=== PATIENT | female | born 1995 | race Caucasian/White ===

== ENCOUNTER → 2017-12-04 | Outpatient (CLI) | payer BC ==
--- NOTE | 2017-12-04 14:17 | US ---
EXAMINATION TYPE: US abdomen complete DATE OF EXAM: 12/04/2017 COMPARISON: Renal only CLINICAL HISTORY: R10.33 PERIUMBILICAL PAIN. Pt states periumbilical pain, N&V EXAM MEASUREMENTS: Liver Length: 12.7 cm Gallbladder Wall: 0.2 cm CBD: 0.3 cm Spleen: 8.5 cm Right Kidney: 10.9 x 4.1 x 4.9 cm Left Kidney: 10.0 x 5.1 x 4.3 cm Pancreas: wnl Liver: wnl Gallbladder: wnl Evidence for sonographic Lopez's sign: No CBD: wnl Spleen: wnl Right Kidney: wnl Left Kidney: wnl Upper IVC: wnl Abd Aorta: wnl No abnormality visualized within ABD at this time The liver is homogenous. The intrahepatic portion of the IVC and proximal abdominal aorta are within normal limits. There is no evidence of cholelithiasis. Common bile duct is unremarkable. The visu alized portions of the pancreas are homogenous. The spleen is unremarkable. Kidneys are symmetric a nd free of hydronephrosis. No renal lesions are seen. IMPRESSION: Normal abdomen ultrasound
--- NOTE | 2017-12-04 15:19 | US ---
EXAMINATION TYPE: US pelvic complete DATE OF EXAM: 12/04/2017 COMPARISON: NONE CLINICAL HISTORY: R10.33 PERIUMBILICAL PAIN. Generalized pain. Patient on menses. TECHNIQUE: Transabdominal (TA). Date of LMP: 12/01/2017, G0 EXAM MEASUREMENTS: Uterus: 6.0 x 3.7 x 3.3 cm Endometrial Stripe: 0.2 cm Right Ovary: 2.5 x 1.6 x 1.3 cm Left Ovary: 2.9 x 1.4 x 1.4 cm 1. Uterus: Anteverted wnl 2. Endometrium: wnl 3. Right Ovary: wnl 4. Left Ovary: wnl 5. Bilateral Adnexa: wnl 6. Posterior cul-de-sac: no free fluid Cervix- wnl IMPRESSION: No significant abnormalities evident
== END | disposition home or self-care (01) ==
LOC: RADUSWWP 13:09
PROVIDERS: ATTEND Family Medicine
DX: R10.33 Periumbilical pain (principal)
CPT/HCPCS: 76700; 76856

== ENCOUNTER → 2018-07-17 | Outpatient (CLI) | payer BC ==
--- NOTE | 2018-07-18 07:14 | XR ---
EXAMINATION TYPE: XR chest 2V DATE OF EXAM: 07/17/2018 COMPARISON: NONE HISTORY: Cough for 1.5 months TECHNIQUE: Frontal and lateral views of the chest are obtained. FINDINGS: There is no focal air space opacity, pleural effusion, or pneumothorax seen. The cardiac silhouette size is within normal limits. The osseous structures are intact. IMPRESSION: No acute cardiopulmonary process.
== END | disposition home or self-care (01) ==
LOC: RADXRYALE 16:48
PROVIDERS: ATTEND Physician Assistant Medical
DX: R05 Cough (principal)
CPT/HCPCS: 71046

== ENCOUNTER 2019-11-24 15:35 | Observation (INO) | payer BC ==
[2019-11-24 16:45] LABS: Appearance,Urine Cloudy (Clear); Bilirubin,Urine Negative (Negative); Blood,Urine Moderate (Negative); Color,Urine Yellow; Glucose,Urine (UA) Negative (Negative); Hyaline Casts,Urine 3 /lpf (0-2); Ketones,Urine Negative (Negative); Leukocyte Esterase,Urine Large (Negative); Mucus,Urine Many /hpf; Nitrite,Urine Negative (Negative); Protein,Urine 1+ (Negative); RBC,Urine 24 /hpf (0-5); Specific Gravity,Urine 1.023 (1.001-1.035); Sperm,Urine Rare /hpf; Squamous Epithelial Cell,Urine 16 /hpf (0-4); Urobilinogen,Urine <2.0 mg/dL (<2.0); WBC,Urine >182 /hpf (0-5)
[2019-11-24 16:56] VITALS: RESP 16
[2019-11-24 16:58] LABS: Basophils % (A) 0 %; Eosinophils # (A) 0.1 k/uL (0-0.7); Eosinophils % (A) 1 %; HCT 33.5 % (34.0-46.0); HGB 10.8 gm/dL (11.4-16.0); Lymphocytes # (A) 1.7 k/uL (1.0-4.8); Lymphocytes % (A) 13 %; MCHC 32.1 g/dL (31.0-37.0); MCV 93.4 fL (80.0-100.0); Mean Platelet Volume 7.8; Monocytes # (A) 0.6 k/uL (0-1.0); Monocytes % (A) 5 %; Neutrophils # (A) 10.3 k/uL (1.3-7.7); Neutrophils % (A) 80 %; Platelet Count 197 k/uL (150-450); RBC 3.59 m/uL (3.80-5.40); RDW 13.1 % (11.5-15.5)
[2019-11-24] MEDS: LACTATED RINGERS 1,000 ML IV SCH ×5 (16:59→21:18)
[2019-11-24] MEDS ORDERED: BETAMET ACET-BETAMETH SOD PHOS 6 MG/ML MDV IM SCH (17:45)
[2019-11-24] MEDS ORDERED: BUTORPHANOL 1 MG/ML 1 ML VIAL IV PRN (18:22)
[2019-11-24] MEDS ORDERED: LACTATED RINGERS 1,000 ML IV SCH (18:30)
--- NOTE | 2019-11-24 18:32 | P.HPOB ---
History of Present Illness H&P Date: 11/24/19 Chief Complaint: Contractions This patient is a 24-year-old 2 para 0 female estimated date of confinement 12/25/2019 estimated gestational age 35-4/7 weeks which is changed by a 9 week ultrasound who presents to labor and delivery with complaints of contractions since about 10:00 this morning. Patient states that she had intercourse this morning at about that time began having back pain and contractions thereafter. care is per Dr. Chadwick and it appears to be otherwise uncomplicated except for the history of a positive Ureaplasma culture. Review of Systems Genitourinary: Reports Menstruation: Reports amenorrhea Past Medical History Past Medical History: GERD/Reflux History of Any Multi-Drug Resistant Organisms: None Reported Past Anesthesia/Blood Transfusion Reactions: No Reported Reaction Past Psychological History: No Psychological Hx Reported Smoking Status: Former smoker Past Alcohol Use History: None Reported Past Drug Use History: None Reported Medications and Allergies Home Medications Medication Instructions Recorded Confirmed Type Citalopram Hydrobromide [CeleXA] 20 mg PO DAILY 11/24/19 11/24/19 History Doxylamine Succinate [Unisom] 25 mg PO DAILY 11/24/19 11/24/19 History Iron 18 mg PO DAILY 11/24/19 11/24/19 History Omeprazole [PriLOSEC] 1 tab OP DAILY 11/24/19 11/24/19 History Pnv,Calcium 72/Iron/Folic Acid 1 tab PO DAILY 11/24/19 11/24/19 History [ Plus Tablet] Allergies Allergy/AdvReac Type Severity Reaction Status Date / Time ibuprofen [From Motrin] Allergy Anaphylaxis Verified 11/24/19 15:47 Penicillins Allergy Nausea & Verified 11/24/19 15:47 Vomiting Exam Vital Signs Temp Pulse Resp BP Pulse Ox 11/24/19 15:59 98.0 F 125 H 16 104/72 98 Intake and Output 11/24/19 11/24/19 11/24/19 06:59 14:59 22:59 Other: Weight 84.822 kg - OBG Physical Exam Abdomen: bowel sounds normal, no diffuse tenderness, no bruit present, no guarding noted, no hepatomegaly, no splenomegaly, no mass Vulva: both: normal Vagina: normal moisture, no discharge Cervix: no lesion (Cervix is 2-3, soft but posterior.), no discharge Uterus: enlarged Results blood work shows she is B+, rubella immune, RPR is nonreactive, hepatitis B is negative, HIV is nonreactive, group B strep has not been done yet, Glucola was normal, ultrasounds at 32 weeks was normal Result Diagrams: 11/24/19 16:45 Abnormal Lab Results - Last 24 Hours (Table) 11/24/19 11/24/19 Range/Units 16:35 16:45 WBC 13.0 H (3.8-10.6) k/uL RBC 3.59 L (3.80-5.40) m/uL Hgb 10.8 L (11.4-16.0) gm/dL Hct 33.5 L (34.0-46.0) % Neutrophils # 10.3 H (1.3-7.7) k/uL Urine Appearance Cloudy H (Clear) Urine Protein 1+ H (Negative) Urine Blood Moderate H (Negative) Ur Leukocyte Esterase Large H (Negative) Urine RBC 24 H (0-5) /hpf Urine WBC >182 H (0-5) /hpf Urine WBC Clumps Few H (None) /hpf Ur Squamous Epith Cells 16 H (0-4) /hpf Hyaline Casts 3 H (0-2) /lpf Urine Mucus Many H (None) /hpf Assessment and Plan Assessment: This is a 24-year-old 2 para 0 female 35-4/7 weeks gestation with contractions and cervical dilation. Since this patient is less than 37 weeks and continues to have contractions despite IV hydration, I'm going to admit her for Celestone therapy in the event she does go on to deliver. If the patient does go into labor we will also give her IV antibiotics due to unknown group B strep status and prematurity. heart tones are category 1 at this time. I did do a bedside ultrasound confirms vertex presentation. Plan is continued inpatient hospitalization. I discussed this plan with the patient and her partner and they understand and agree. (1) 35 to 36 weeks gestation of Current Visit: Yes Status: Acute Code(s): [id number] - SNOMED Code(s): 539260138 (2) contractions Current Visit: Yes Status: Acute Code(s): O47.9 - FALSE LABOR, UNSPECIFIED SNOMED Code(s): 659682932
--- NOTE | 2019-11-24 18:39 | P.MSEPDOC ---
Presenting Problems - Arrival Data Date of Arrival on Unit: 11/24/19 Time of Arrival on Unit: 15:55 Mode of Transport: Ambulatory - Complaint OB-Reason for Admission/Chief Complaint: Possible Onset of Labor Comment: states started having contx at 1000, getting stronger through day now stronger and stronger. intercourse during that time. denies leaking fluid or bleeding vaginally Medical History - Information : 2 Para: 0 Term: 0 : 0 Abortions: Spontaneous or Elective: 1 Number of Living Children: 0 - Gestational Age Gestational Age by YOSI (wks/days): 35 Weeks and 4 Days - History Complications: Smoker, Other Comment: gbs unknown not done yet. Review of Systems - Review of Systems Constitutional: No problems Breast: No problems ENT: No problems Cardiovascular: No problems Respiratory: No problems Gastrointestinal: No problems Genitourinary: No problems Musculoskeletal: No problems Neurological: No problems Skin: No problems Vital Signs - Temperature Temperature: 98.0 F Temperature Source: Temporal Artery Scan - Pulse Right Radial Pulse Rate: 125 Pulse Assessment Method: Auscultation - Respirations Respiratory Rate: 16 Oxygen Delivery Method: Room Air O2 Sat by Pulse Oximetry: 98 - Blood Pressure Right Arm Blood Pressure: 104/72 Blood Pressure Mean: 82 Blood Pressure Source: Automatic Cuff Medical Screen Scoring (Pre) - Cervical Exam Dilation: 1-3 cm = 1 Membranes: Intact - Uterine Contractions Frequency: < 36 weeks = 6 Duration: > 40 seconds = 2 Intensity: N/A - Maternal Vital Signs Maternal Temperature: N/A Maternal Blood Pressure: N/A Signs of Preeclampsia: N/A Maternal Respirations: N/A - Maternal Trauma Maternal Trauma: N/A - Assessment - Baby A Baseline FHR: 140 Heart Rate - NICHD Category: Category I (Normal) = 0 NST: Reactive Station: N/A - Total Score - Baby A Total Score - Baby A: 9 - Total Score - Baby B Total Score - Baby B: 9 - Total Score - Baby C Total Score - Baby C: 9 - Level of Risk - Baby A Level of Risk - Baby A: Medium (6-9) - Level of Risk - Baby B Level of Risk - Baby B: Medium (6-9) - Level of Risk - Baby C Level of Risk - Baby C: Medium (6-9) Physician Notification (Pre) - Physician Notified Physician Notified Date: 11/24/19 Physician Notified Time: 16:20 New Order Received: Yes - Notification Comment Comment: iv hydrate l/r. cbc and urinalsys. recheck 1 hour and call report Disposition - Disposition OB Disposition: Discharge to home I agree with the RN Medical Screening Exam: Yes Risk & Benefit of care provided described in d/c instruction: Yes Diagnosis: LABOR WITHOUT DELIVERY, THIRD TRIMESTER
[2019-11-24] MEDS ORDERED: diphenhydrAMINE 25 MG CAP PO STA (23:44)
[2019-11-25 04:07] VITALS: BP 118/63; PULSE 92; TEMP 96.6
--- NOTE | 2019-11-25 08:50 | P.DS ---
Providers Date of admission: 11/24/19 17:42 Expected date of discharge: 11/25/19 Attending physician: Ethan Watters Primary care physician: Ethan Watters [facility] Course: Patient is doing well this morning. Her contractions decreased significantly. She is requesting discharge home. Prescription for Keflex and omeprazole are provided. She'll follow up with me this week. She is aware to maintain pelvic rest for next few days. She will return this evening for a second dose of Celestone. All the questions are answered for this time. Her vital signs are stable and afebrile. Heart regular, lungs clear, extremities without pain. Abdomen soft and few contractions are noted. A category 1 tracing has been noted. Patient Condition at Discharge: Good Plan - Discharge Summary New Discharge Prescriptions: New Omeprazole [PriLOSEC] 40 mg PO DAILY 30 Days #30 cap Cephalexin [Keflex] 500 mg PO Q6HR #20 cap No Action Omeprazole [PriLOSEC] 1 tab OP DAILY Citalopram Hydrobromide [CeleXA] 20 mg PO DAILY Iron 18 mg PO DAILY Pnv,Calcium 72/Iron/Folic Acid [ Plus Tablet] 1 tab PO DAILY Doxylamine Succinate [Unisom] 25 mg PO DAILY Discharge Medication List Citalopram Hydrobromide [CeleXA] 20 mg PO DAILY 11/24/19 [History] Doxylamine Succinate [Unisom] 25 mg PO DAILY 11/24/19 [History] Iron 18 mg PO DAILY 11/24/19 [History] Omeprazole [PriLOSEC] 1 tab OP DAILY 11/24/19 [History] Pnv,Calcium 72/Iron/Folic Acid [ Plus Tablet] 1 tab PO DAILY 11/24/19 [History] Cephalexin [Keflex] 500 mg PO Q6HR #20 cap 11/25/19 [Rx] Omeprazole [PriLOSEC] 40 mg PO DAILY 30 Days #30 cap 11/25/19 [Rx] Follow up Appointment(s)/Referral(s): Brannon Chadwick DO [Doctor of Osteopathic Medicine] - 1 Week Activity/Diet/Wound Care/Special Instructions: Return with any contractions, leaking of fluid or bleeding. She will return tonight for a second dose of Celestone as she is only 35 weeks gestation. Discharge Disposition: HOME SELF-CARE
== END 2019-11-25 09:05 | disposition home or self-care (01) ==
LOC: FBPOP 15:35 → 4FBP 17:42
PROVIDERS: ADMIT Obstetrics & Gynecology; ATTEND Obstetrics & Gynecology
DX: O60.03 Preterm labor without delivery, third trimester (principal); Z3A.35 35 weeks gestation of pregnancy; O99.613 Diseases of the digestive system complicating pregnancy, third trimester; K21.9 Gastro-esophageal reflux disease without esophagitis; Z87.891 Personal history of nicotine dependence; Z79.899 Other long term (current) drug therapy; Z88.0 Allergy status to penicillin; Z88.8 Allergy status to other drugs, medicaments and biological substances
CPT/HCPCS: 59025; 99214; 96361; 96365; 96372; 85025; 81001; G0378 ×2; J0690 ×2; J0702; 96360; 96366

== ENCOUNTER 2019-11-25 17:53 | Outpatient (CLI) | payer BC ==
[2019-11-25] MEDS ORDERED: BETAMET ACET-BETAMETH SOD PHOS 6 MG/ML MDV IM SCH (18:00)
== END 2019-11-25 18:05 | disposition home or self-care (01) ==
LOC: FBPOP 17:53
PROVIDERS: ATTEND Obstetrics & Gynecology
DX: O60.00 Preterm labor without delivery, unspecified trimester (principal); Z3A.00 Weeks of gestation of pregnancy not specified
CPT/HCPCS: 96372; J0702

== ENCOUNTER 2019-12-12 18:06 | Outpatient (CLI) | payer BC ==
[2019-12-12 20:12] VITALS: TEMP 98.1
[2019-12-12 20:14] VITALS: BP 123/80; PULSE 102; RESP 16
--- NOTE | 2019-12-24 22:59 | P.MSEPDOC ---
Presenting Problems - Arrival Data Date of Arrival on Unit: 12/12/19 Time of Arrival on Unit: 18:06 Mode of Transport: Ambulatory - Complaint OB-Reason for Admission/Chief Complaint: Possible Onset of Labor Medical History - Information : 2 Para: 0 Term: 0 : 0 Abortions: Spontaneous or Elective: 1 Number of Living Children: 0 - Gestational Age Gestational Age by YOSI (wks/days): 38 Weeks and 1 Days Review of Systems - Review of Systems Constitutional: No problems Breast: No problems ENT: No problems Cardiovascular: No problems Respiratory: No problems Gastrointestinal: No problems Genitourinary: No problems Musculoskeletal: No problems Neurological: No problems Skin: No problems Vital Signs - Temperature Temperature: 98.1 F Temperature Source: Temporal Artery Scan - Pulse Right Pulse Rate: 102 Pulse Assessment Method: Automatic Cuff - Respirations Respiratory Rate: 16 Oxygen Delivery Method: Room Air O2 Sat by Pulse Oximetry: 97 - Blood Pressure Right Arm Blood Pressure: 123/80 Blood Pressure Mean: 94 Blood Pressure Source: Automatic Cuff Medical Screen Scoring (Pre) - Cervical Exam Dilation: 4-7 cm = 2 Membranes: Intact - Uterine Contractions Frequency: > or = 36 weeks =2 Duration: > 40 seconds = 2 Intensity: Contraction palpated strong = 1 - Maternal Vital Signs Maternal Temperature: N/A Maternal Blood Pressure: N/A Signs of Preeclampsia: N/A Maternal Respirations: N/A - Maternal Trauma Maternal Trauma: N/A - Assessment - Baby A Baseline FHR: 145 Heart Rate - NICHD Category: Category I (Normal) = 0 NST: Reactive Position: N/A Station: N/A - Total Score - Baby A Total Score - Baby A: 7 - Total Score - Baby B Total Score - Baby B: 7 - Total Score - Baby C Total Score - Baby C: 7 - Level of Risk - Baby A Level of Risk - Baby A: Medium (6-9) - Level of Risk - Baby B Level of Risk - Baby B: Medium (6-9) - Level of Risk - Baby C Level of Risk - Baby C: Medium (6-9) Physician Notification (Pre) - Physician Notified Physician Notified Date: 12/12/19 Physician Notified Time: 18:38 Medical Screen Scoring (Post) - Cervical Exam Dilation: 4-7 cm = 2 Effacement: More than 50% = 2 Membranes: Intact - Uterine Contractions Frequency: > or = 36 weeks =2 Duration: > 40 seconds = 2 Intensity: N/A - Maternal Vital Signs Maternal Temperature: N/A Maternal Blood Pressure: N/A Signs of Preeclampsia: N/A Maternal Respirations: N/A - Pain Assessment Pain Scale Used: Numeric (1 - 10) Pain Intensity: 6 Pain Description: *Acute Pain Aggravating Factors: Contractions - Maternal Trauma Maternal Trauma: N/A - Assessment - Baby A Heart Rate: 145 Heart Rate - NICHD Category: Category II (Indeterminate) = 3 NST: Reactive Position: N/A Station: N/A - Total Score Total Score - Baby A: 11 Total Score - Baby B: 8 Total Score - Baby C: 8 - Post Treatment Level of Risk Post Treatment Level of Risk - Baby A: High (10+) Physician Notification (Post) - Physician Notified Physician Notified Date: 12/12/19 Physician Notified Time: 19:30 Physician/Practitioner Notified:: Jet De La Paz Order Received: Yes - Notification Comment Comment: DC pt home, FHR WNL, documented as a category II d/t 1 variable during stay. Physician aware, pt may DC home. Disposition - Disposition OB Disposition: Discharge to home Discharge Date: 12/12/19 Discharge Time: 19:40 I agree with the RN Medical Screening Exam: Yes Physician's MSE Comment: Pt had category 1 FHR tracing upon discharge Risk & Benefit of care provided described in d/c instruction: Yes Diagnosis: FALSE LABOR BEFORE 37 COMPLETED WEEKS OF GEST, THIRD TRI
== END 2019-12-12 19:40 | disposition home or self-care (01) ==
LOC: FBPOP 18:06
PROVIDERS: ATTEND Obstetrics & Gynecology
DX: O47.03 False labor before 37 completed weeks of gestation, third trimester (principal); Z3A.38 38 weeks gestation of pregnancy
CPT/HCPCS: 59025; 99213

== ENCOUNTER 2019-12-15 02:05 | Inpatient (IN) | payer BC ==
[2019-12-15] MEDS ORDERED: METHYLERGONOVINE 0.2 MG/ML 1 ML AMP IM PRN (02:33)
[2019-12-15] MEDS ORDERED: CARBOPROST TROMETHAMINE 250 MCG/ML 1 ML AMP IM PRN (02:33)
[2019-12-15] MEDS ORDERED: LIDOCAINE 0.5% (PF) 5 MG/ML (50 ML SDV) SQ PRN (02:33)
[2019-12-15] MEDS ORDERED: OXYTOCIN 10 UNIT/ML 1 ML VIAL IM PRN (02:33)
[2019-12-15] MEDS ORDERED: TERBUTALINE 1 MG/ML VIAL SQ PRN (02:33)
[2019-12-15] MEDS ORDERED: OXYTOCIN 30 UNITS/500 ML NS 30 UNIT in SALINE 1 500ML.BAG IV SCH (02:45)
[2019-12-15] MEDS: LACTATED RINGERS 1,000 ML IV SCH ×3 (02:47→08:55)
[2019-12-15 03:13] LABS: Basophils % (A) 0 %; Eosinophils # (A) 0.1 k/uL (0-0.7); Eosinophils % (A) 1 %; HCT 33.9 % (34.0-46.0); Lymphocytes # (A) 2.2 k/uL (1.0-4.8); Lymphocytes % (A) 20 %; MCH 29.9 pg (25.0-35.0); MCHC 32.4 g/dL (31.0-37.0); MCV 92.1 fL (80.0-100.0); Mean Platelet Volume 7.6; Monocytes # (A) 0.6 k/uL (0-1.0); Monocytes % (A) 5 %; Neutrophils # (A) 7.8 k/uL (1.3-7.7); Neutrophils % (A) 71 %; Platelet Count 197 k/uL (150-450); RBC 3.68 m/uL (3.80-5.40); RDW 13.9 % (11.5-15.5); WBC 10.9 k/uL (3.8-10.6)
--- NOTE | 2019-12-15 06:33 | P.HPOB ---
History of Present Illness H&P Date: 12/15/19 Chief Complaint: SROM 24-year-old presents at 30 weeks and 4 days with spontaneous rupture of membranes. Her water broke at 2200 on 12/14/2019. She presented to family 5-1/2 cm dilated, 90% effaced, and -2 station. heart tones 140 with moderate variability and reactive. Review of Systems All systems: negative Constitutional: Denies chills, Denies fever Eyes: denies blurred vision, denies pain Ears, nose, mouth and throat: Denies headache, Denies sore throat Cardiovascular: Denies chest pain, Denies shortness of breath Respiratory: Denies cough Gastrointestinal: Denies abdominal pain, Denies diarrhea, Denies nausea, Denies vomiting Genitourinary: Denies dysuria, Denies hematuria Musculoskeletal: Denies myalgias Integumentary: Denies pruritus, Denies rash Neurological: Denies numbness, Denies weakness Psychiatric: Denies anxiety, Denies depression Endocrine: Denies fatigue, Denies weight change Past Medical History Past Medical History: GERD/Reflux Additional Past Medical History / Comment(s): Obstetric history: First was a spontaneous . This is her second she's had care with Dr. Yadav since 9 weeks gestation. Blood type is B+, is negative, rubella immune, Pap is B-, RPR nonreactive, HIV nonreactive. History of Any Multi-Drug Resistant Organisms: None Reported Past Surgical History: Tonsillectomy Additional Past Surgical History / Comment(s): wisdom teeth Past Anesthesia/Blood Transfusion Reactions: No Reported Reaction Past Psychological History: No Psychological Hx Reported Smoking Status: Former smoker Past Alcohol Use History: None Reported Past Drug Use History: None Reported - Past Family History Father History Unknown: Yes Family Medical History: Hypertension Medications and Allergies Home Medications Medication Instructions Recorded Confirmed Type Citalopram Hydrobromide [CeleXA] 20 mg PO DAILY 11/24/19 12/15/19 History Doxylamine Succinate [Unisom] 25 mg PO DAILY 11/24/19 12/15/19 History Iron 18 mg PO DAILY 11/24/19 12/15/19 History Pnv,Calcium 72/Iron/Folic Acid 1 tab PO DAILY 11/24/19 12/15/19 History [ Plus Tablet] Omeprazole [PriLOSEC] 40 mg PO DAILY 30 Days #30 cap 11/25/19 12/15/19 Rx Allergies Allergy/AdvReac Type Severity Reaction Status Date / Time ibuprofen [From Motrin] Allergy Anaphylaxis Verified 12/15/19 02:06 Penicillins Allergy Nausea & Verified 12/15/19 02:06 Vomiting Exam Osteopathic Statement: *. No significant issues noted on an osteopathic structural exam other than those noted in the History and Physical/Consult. Vital Signs Temp Pulse Resp BP Pulse Ox 12/15/19 02:08 97.1 F L 106 H 18 112/76 98 Intake and Output 12/14/19 12/14/19 12/15/19 14:59 22:59 06:59 Other: Weight 86.183 kg Heart: Regular rate and rhythm Lungs: Clear to auscultation bilaterally Abdomen: Soft, nontender Extremities: Negative Homans sign Results Result Diagrams: 12/15/19 02:35 Abnormal Lab Results - Last 24 Hours (Table) 12/15/19 Range/Units 02:35 WBC 10.9 H (3.8-10.6) k/uL RBC 3.68 L (3.80-5.40) m/uL Hgb 11.0 L (11.4-16.0) gm/dL Hct 33.9 L (34.0-46.0) % Neutrophils # 7.8 H (1.3-7.7) k/uL Assessment and Plan (1) Spontaneous rupture of amniotic membranes Current Visit: Yes Status: Acute Code(s): [id number] - SNOMED Code(s): 423509968 Plan: 1. Admit to family place 2. Pitocin augmentation 3. Anticipate normal vaginal delivery
[2019-12-15] MEDS ORDERED: ROPIVACAINE 100 MG, fentaNYL (PF) 200 MCG in SODIUM CHLORIDE 0.9% 76 ML EPIDURAL ONE (08:21)
[2019-12-15] MEDS ORDERED: CLINDAMYCIN 600 MG in DEXTROSE 5% IN WATER 50 ML IVPB STA ×2 (15:55)
[2019-12-15] MEDS ORDERED: IBUPROFEN 600 MG TAB PO PRN (16:52)
[2019-12-15] MEDS ORDERED: SIMETHICONE 80 MG CHEWABLE PO PRN (16:52)
[2019-12-15] MEDS ORDERED: ZOLPIDEM 5 MG TAB PO PRN (16:52)
[2019-12-15] MEDS ORDERED: diphenhydrAMINE 50 MG CAP PO PRN (16:52)
[2019-12-15] MEDS ORDERED: diphenhydrAMINE 50 MG/ML 1 ML VIAL IVP PRN ×2 (16:52)
[2019-12-15] MEDS ORDERED: HYDROCORTISONE 2.5% RECTAL CREAM 30 GM TUBE RECTAL PRN (16:52)
[2019-12-15] MEDS ORDERED: LANOLIN CREAM 5 GM TUBE TOPICAL PRN (16:52)
[2019-12-15] MEDS ORDERED: BENZOCAINE/MENTHOL SPRAY 1 GM/SPRAY AEROSOL TOPICAL PRN (16:52)
[2019-12-15] MEDS ORDERED: WITCH HAZEL 1 EACH MED..PAD TOPICAL PRN (16:52)
[2019-12-15] MEDS ORDERED: diphenhydrAMINE 25 MG CAP PO PRN (16:52)
--- NOTE | 2019-12-15 16:55 | P.PROBDLV ---
Vaginal Delivery Note - . Vaginal Delivery Note: Patient progressed complete and pushed with spontaneous vaginal delivery of a viable female over a third-degree perineal laceration. During deliver the head midline laceration was performed as the head came out from straight occiput anterior position. Once baby's head was delivered gentle lateral traction was done to deliver the shoulders followed by the remainder the baby. Mouth nares were then bulb suctioned and baby was placed on mother's abdomen where the umbilical cord stopped pulsating for 45 seconds prior to clamping and cutting. Nursery personnel was present to assume care. Placenta was then delivered intact Pitocin was added to the IV. Local anesthetic was injected into the third-degree perineal laceration. Rectal exam was performed the initial suturing to verify no fourth degree laceration was present and I cannot palpate any capsular damage. Initially 2 deep sutures were placed to reapproximate the tissues over the rectum. Then the remainder was repaired in usual fashion of an episiotomy. Once this was completed another rectal exam was performed verifying good tone and no capsular involvement. scores and weight are both pending but both mother and baby are currently stable following delivery.
[2019-12-15] MEDS ORDERED: OXYTOCIN 20 UNITS/1000 ML NS 1,000 ML IV SCH (17:00)
[2019-12-15] MEDS: HYDROcodone/APAP 5-325MG 1 EACH TAB PO PRN ×2 (17:14→21:36)
[2019-12-15] MEDS: SENNOSIDES-DOCUSATE SODIUM 1 EACH TAB PO SCH (20:01)
[2019-12-15] MEDS: PANTOPRAZOLE 40 MG TABLET PO SCH (23:08)
[2019-12-16] MEDS: HYDROcodone/APAP 5-325MG 1 EACH TAB PO PRN ×2 (01:11→23:18)
[2019-12-16] MEDS: ACETAMINOPHEN TAB 325 MG TAB PO PRN ×2 (05:55→14:52)
[2019-12-16 06:12] LABS: Basophils % (A) 0 %; Eosinophils # (A) 0.1 k/uL (0-0.7); Eosinophils % (A) 1 %; HCT 26.7 % (34.0-46.0); Hypochromasia Slight; Lymphocytes # (A) 2.2 k/uL (1.0-4.8); Lymphocytes % (A) 14 %; MCH 30.3 pg (25.0-35.0); MCHC 32.6 g/dL (31.0-37.0); Mean Platelet Volume 7.8; Monocytes # (A) 0.8 k/uL (0-1.0); Monocytes % (A) 5 %; Neutrophils # (A) 11.7 k/uL (1.3-7.7); Neutrophils % (A) 78 %; Platelet Count 179 k/uL (150-450); RBC 2.87 m/uL (3.80-5.40)
[2019-12-16 06:14] LABS: HGB 8.7 gm/dL (11.4-16.0)
--- NOTE | 2019-12-16 08:25 | P.PNOBGVD ---
Subjective - Subjective Principal diagnosis: day 1 Interval history: Overall Karie is doing very well. She is involuting, voiding and she is tolerating her diet. She relates that the bleeding has slowed. In discussing with her she relates that the pain from her laceration is not too bad but cramping is significantly worse. She is questioning if she can take naproxen. She had such a severe ALLERGY to Motrin it didn't even occur to me to ask about other NSAIDs, however she relates that she takes naproxen/Aleve at home on a routine basis and has taken it since she was a child and had no problems. We'll start her on naproxen for her cramping. Otherwise she is doing well and we'll continue current care with use of stool softeners with a third-degree perineal laceration Objective - Latest Vital Signs Latest vital signs: Vital Signs Temp Pulse Resp BP Pulse Ox 12/16/19 04:00 98.2 F 92 18 124/64 12/16/19 00:00 98.6 F 109 H 18 118/67 12/15/19 20:00 98.4 F 96 16 127/79 98 12/15/19 18:36 97.2 F L 105 H 18 115/70 12/15/19 18:15 109 H 113/67 12/15/19 17:45 97.2 F L 88 18 117/72 12/15/19 17:30 97.5 F L 108 H 18 112/68 12/15/19 17:15 97.7 F 106 H 18 127/70 12/15/19 17:00 97.6 F 111 H 18 133/64 12/15/19 16:45 97.2 F L 121 H 18 142/67 Intake and Output 12/15/19 12/16/19 12/16/19 22:59 06:59 14:59 Other: # Voids 2 - Exam Lungs: bilateral: normal Chest: Normal S1, Normal S2 Extremities: Present: normal Abdomen: Present: normal appearance, soft Uterus: Present: normal, firm - Labs Labs: Abnormal Lab Results - Last 24 Hours (Table) 12/16/19 Range/Units 05:40 WBC 15.0 H (3.8-10.6) k/uL RBC 2.87 L (3.80-5.40) m/uL Hgb 8.7 L D (11.4-16.0) gm/dL Hct 26.7 L (34.0-46.0) % Neutrophils # 11.7 H (1.3-7.7) k/uL
[2019-12-16] MEDS: SENNOSIDES-DOCUSATE SODIUM 1 EACH TAB PO SCH ×2 (08:58→20:40)
[2019-12-16] MEDS: NAPROXEN 250 MG TAB PO SCH ×2 (09:05→20:40)
[2019-12-16] MEDS: PANTOPRAZOLE 40 MG TABLET PO SCH (20:41)
[2019-12-17] MEDS: ACETAMINOPHEN TAB 325 MG TAB PO PRN ×2 (05:33→14:09)
--- NOTE | 2019-12-17 08:48 | P.DS ---
Providers Date of admission: 12/15/19 02:26 Expected date of discharge: 12/17/19 Attending physician: Brannon Chadwick Primary care physician: Stated None Hospital Course: Patient is doing very well post day 2. She is involuting, voiding and tolerating her diet. She voices no complaints. She is had a bowel movement this morning and she relates that she has no pain or no difficulties having a bowel movement. She is aware to have is soft of stool as possible. Next several days as her third-degree laceration healing all the questions are answered for her at this time. On physical exam her vital signs are stable and afebrile. Heart regular, lungs clear, extremities without pain. Abdomen soft uterus is firm and lochia is reported light. Assessment day 2. Plan discharged home follow up with me in 6 weeks. Prescription for Joy was forwarded to her pharmacy. Patient Condition at Discharge: Good Plan - Discharge Summary New Discharge Prescriptions: New HYDROcodone/APAP 5-325MG [Joy 5-325] 1 tab PO Q4HR PRN #30 tab PRN Reason: Pain No Action Citalopram Hydrobromide [CeleXA] 20 mg PO DAILY Iron 18 mg PO DAILY Pnv,Calcium 72/Iron/Folic Acid [ Plus Tablet] 1 tab PO DAILY Doxylamine Succinate [Unisom] 25 mg PO DAILY Omeprazole [PriLOSEC] 40 mg PO DAILY 30 Days #30 cap Discharge Medication List Citalopram Hydrobromide [CeleXA] 20 mg PO DAILY 11/24/19 [History] Doxylamine Succinate [Unisom] 25 mg PO DAILY 11/24/19 [History] Iron 18 mg PO DAILY 11/24/19 [History] Pnv,Calcium 72/Iron/Folic Acid [ Plus Tablet] 1 tab PO DAILY 11/24/19 [History] Omeprazole [PriLOSEC] 40 mg PO DAILY 30 Days #30 cap 11/25/19 [Rx] HYDROcodone/APAP 5-325MG [Joy 5-325] 1 tab PO Q4HR PRN #30 tab 12/17/19 [Rx] Follow up Appointment(s)/Referral(s): Brannon Chadwick DO [Doctor of Osteopathic Medicine] - 6 Weeks Activity/Diet/Wound Care/Special Instructions: No heavy lifting, insertion driving and pelvic rest. If any high temperatures, heavy bleeding, or severe pain call my office
[2019-12-17] MEDS: NAPROXEN 250 MG TAB PO SCH (09:08)
[2019-12-17] MEDS: SENNOSIDES-DOCUSATE SODIUM 1 EACH TAB PO SCH (09:08)
[2019-12-17 16:39] VITALS: BP 101/64; PULSE 90; RESP 15; TEMP 98.1
[2019-12-17] MEDS: PANTOPRAZOLE 40 MG TABLET PO SCH (16:52)
--- NOTE | 2019-12-18 13:06 | CDI ---
Documentation Clarification Form Date: 12/18/19 From: Jaky Monzon Phone: If you have a question about this query, please contact Diane Tran, [employer] Attendant at [phone] between 8am and 5pm. Admit Date: 12/15/19 Discharge Date: 12/17/19 Patient Name: RENETTA CACERES Visit Number: [id number] ATTENTION: The Clinical Documentation Specialists (CDI) and [facility] Coding Staff appreciate your assistance in clarifying documentation. Please respond to the clarification below the line at the bottom and electronically sign. The CDI & [facility] Coding staff will review the response and follow-up if needed. Please note: Queries are made part of the Legal Health Record. If you have any questions, please contact the author of this message via ITS. Dear Dr. Brannon Chadwick, A woman, 39 weeks gestation admitted in active labor. She had an episotomy with manually assisted vaginal delivery of a normal . The patient suffered a partial third degree laceration which was repaired. In your professional opinion, did the third degree laceration involve: *Injury to perineal skin only *Injury to perineum involving perineal muscles but not involving anal sphincter *Injury to perineum involving anal sphincter complex *Less than 50% of external anal sphincter (EAS) thickness torn *More than 50% of external anal sphincter (EAS) thickness torn *Both external anal sphincter (EAS) and internal anal sphincter (IAS) torn *Injury to perineum involving anal sphincter complex (external anal sphincter (EAS) and internal anal sphincter (IAS) and anal epithelium *Other, please specify *Clinically unable to determine firstly this was NOT an episotomy. I would say injury to perineum involving perineal muscles but not involving anal sphincter MTDD
== END 2019-12-17 20:10 | disposition home or self-care (01) | DRG 807 ==
LOC: FBPOP 02:05 → 4FBP 02:26
PROVIDERS: ADMIT Obstetrics & Gynecology; ATTEND Obstetrics & Gynecology
PROC: 3E0R3BZ Introduction of Anesthetic Agent into Spinal Canal, Percutaneous Approach (ICD-10-PCS; principal; 2019-12-15)
PROC: 0KQM0ZZ Repair Perineum Muscle, Open Approach (ICD-10-PCS; principal; 2019-12-15)
PROC: 10E0XZZ Delivery of Products of Conception, External Approach (ICD-10-PCS; principal; 2019-12-15)
PROC: 00HU33Z Insertion of Infusion Device into Spinal Canal, Percutaneous Approach (ICD-10-PCS; principal; 2019-12-15)
DX: O70.1 Second degree perineal laceration during delivery (principal); Z37.0 Single live birth; K21.9 Gastro-esophageal reflux disease without esophagitis; O99.62 Diseases of the digestive system complicating childbirth; Z3A.38 38 weeks gestation of pregnancy; Z90.89 Acquired absence of other organs; Z79.899 Other long term (current) drug therapy; Z98.890 Other specified postprocedural states; Z87.891 Personal history of nicotine dependence; Z88.6 Allergy status to analgesic agent; Z88.0 Allergy status to penicillin; Z82.49 Family history of ischemic heart disease and other diseases of the circulatory system
CPT/HCPCS: 59025; 84112; 85025; 86850; 86900; 86901; 88307; 99213

== ENCOUNTER → 2021-03-22 | Outpatient (CLI) | payer BC ==
--- NOTE | 2021-03-22 14:21 | US ---
EXAMINATION TYPE: US abdomen complete DATE OF EXAM: 03/22/2021 COMPARISON: US CLINICAL HISTORY: R74.01 ELEV OF LEVELS OF LIVER TRANSAMINASE. Generalized right lateral abdomen pain with applied pressure'; HT 5'1, WT 210lb. EXAM MEASUREMENTS: Liver Length: 11.3 cm Gallbladder Wall: 0.2 cm CBD: 0.3 cm Spleen: 9.0 cm Right Kidney: 10.5 x 5.2 x 4.5 cm Left Kidney: 10.2 x 5.0 x 4.8 cm Pancreas: hyperechoic with tail obscured by overlying bowel gas Liver: hyperechoic to right renal cortex suggests fatty liver; focal fatty sparing near gallbladder Gallbladder: wnl Evidence for sonographic Lopez's sign: no CBD: wnl Spleen: wnl Right Kidney: No hydronephrosis or masses seen Left Kidney: No hydronephrosis or masses seen Upper IVC: wnl Abd Aorta: wnl IMPRESSION: 1. Some fatty infiltration to the liver. 2. Somewhat hyperechoic pancreas. Correlate with the pancreas laboratory results.
== END | disposition home or self-care (01) ==
LOC: RADUSWWP 09:37
PROVIDERS: ATTEND Family Medicine
DX: K76.0 Fatty (change of) liver, not elsewhere classified (principal)
CPT/HCPCS: 76700

== ENCOUNTER 2021-08-08 16:46 | Emergency (ER) | payer BC ==
[2021-08-08 17:32] VITALS: BP 141/85; PULSE 98; RESP 20; TEMP 98.7
[2021-08-08] MEDS ORDERED: SODIUM CHLORIDE 0.9% 500 ML 500 ML IV STA (19:18)
--- NOTE | 2021-08-08 19:27 | ED ---
General Adult HPI - General Chief complaint: Vaginal Bleeding Stated complaint: possible miscarriage Time Seen by Provider: 08/08/21 19:15 Source: patient, RN notes reviewed, old records reviewed Mode of arrival: ambulatory Limitations: no limitations - History of Present Illness Initial comments: 25-year-old female presents to the emergency room with 6 days of pelvic pain/cramping and bleeding. She states she did call her [employer] and was told to come to the emergency room if she passes clots that are larger than a quarter. She does not remember when her last menstrual period was and states that she thinks she is approximately 6 weeks . She is a . -: days(s) (6) Location: pelvis Severity scale (1-10): 3 Quality: other (cramping) Consistency: constant Improves with: none Associated Symptoms: other (vaginal bleeding) Treatments Prior to Arrival: none - Related Data Home Medications Medication Instructions Recorded Confirmed Citalopram Hydrobromide [CeleXA] 20 mg PO HS 11/24/19 08/08/21 Doxylamine Succinate [Unisom] 25 mg PO HS 11/24/19 08/08/21 Pnv,Calcium 72/Iron/Folic Acid 1 tab PO HS 11/24/19 08/08/21 [ Plus Tablet] Cholecalciferol [Vitamin D3 (25 50 mcg PO HS 08/08/21 08/08/21 Mcg = 1000 Iu)] Omeprazole [PriLOSEC] 40 mg PO HS 08/08/21 08/08/21 Previous Rx's Medication Instructions Recorded Sulfamethox-Tmp 800-160Mg [Bactrim 1 each PO Q12HR 3 Days #6 tab 08/08/21 Ds] Allergies Allergy/AdvReac Type Severity Reaction Status Date / Time ibuprofen [From Motrin] Allergy Anaphylaxis Verified 08/08/21 21:30 Penicillins Allergy Nausea & Verified 08/08/21 21:30 Vomiting Review of Systems ROS Statement: Those systems with pertinent positive or pertinent negative responses have been documented in the HPI. ROS Other: All systems not noted in ROS Statement are negative. Past Medical History Past Medical History: GERD/Reflux Additional Past Medical History / Comment(s): Obstetric history: First was a spontaneous . This is her second she's had care with Dr. Yadav since 9 weeks gestation. Blood type is B+, is negative, rubella immune, Pap is B-, RPR nonreactive, HIV nonreactive. History of Any Multi-Drug Resistant Organisms: None Reported Past Surgical History: Tonsillectomy Additional Past Surgical History / Comment(s): wisdom teeth Past Anesthesia/Blood Transfusion Reactions: No Reported Reaction Past Psychological History: No Psychological Hx Reported Smoking Status: Current every day smoker Past Alcohol Use History: None Reported Past Drug Use History: None Reported - Past Family History Father History Unknown: Yes Family Medical History: Hypertension General Exam Limitations: no limitations General appearance: alert, in no apparent distress Eye exam: Present: normal appearance Respiratory exam: Present: normal lung sounds bilaterally. Absent: respiratory distress, wheezes, rales, rhonchi, stridor Cardiovascular Exam: Present: regular rate GI/Abdominal exam: Present: soft, tenderness (pelvic). Absent: distended, guarding, rebound, rigid Extremities exam: Present: normal inspection, full ROM, normal capillary refill. Absent: pedal edema, calf tenderness Back exam: Present: normal inspection, full ROM. Absent: tenderness Neurological exam: Present: alert, oriented X3 Psychiatric exam: Present: normal affect, normal mood Skin exam: Present: warm, dry, intact, normal color. Absent: cyanosis, diaphoretic Course Vital Signs 08/08/21 17:30 Temperature 98.7 F Pulse Rate 98 Respiratory 20 Rate Blood Pressure 141/85 O2 Sat by Pulse 99 Oximetry Medical Decision Making - Medical Decision Making Patient presents to the emergency room with complaints of vaginal bleeding state s she is 6 weeks but unknown LMP. Transabdominal ultrasound shows no IUP urine and beta hCG is negative. There is no evidence of torsion. There is no evidence of leukocytosis hemoglobin and hematocrit are electrolytes are unremarkable. Urinalysis shows cloudy urine with large blood 44 wbc's. Her bleeding is likely her menstrual cycle. Her abdomen is soft and nontender. She 'll be treated for urinary tract infection with Bactrim and directed to follow up with her primary care doctor. Patient is agreeable to this plan of care. Vital signs are stable at discharge. Case discussed with Dr. Knapp - Lab Data Result diagrams: 08/08/21 19:42 08/08/21 19:42 Lab Results 08/08/21 08/08/21 08/08/21 Range/Units 19:15 19:15 19:42 WBC 10.9 H (3.8-10.6) k/uL RBC 4.31 (3.80-5.40) m/uL Hgb 13.5 (11.4-16.0) gm/dL Hct 40.7 (34.0-46.0) % MCV 94.5 (80.0-100.0) fL MCH 31.4 (25.0-35.0) pg MCHC 33.3 (31.0-37.0) g/dL RDW 12.7 (11.5-15.5) % Plt Count 282 (150-450) k/uL MPV 9.1 Neutrophils % 57 % Lymphocytes % 35 % Monocytes % 5 % Eosinophils % 2 % Basophils % 1 % Neutrophils # 6.2 (1.3-7.7) k/uL Lymphocytes # 3.8 (1.0-4.8) k/uL Monocytes # 0.5 (0-1.0) k/uL Eosinophils # 0.2 (0-0.7) k/uL Basophils # 0.1 (0-0.2) k/uL PT (9.0-12.0) sec INR (<1.2) Sodium (137-145) mmol/L Potassium (3.5-5.1) mmol/L Chloride (98-107) mmol/L Carbon Dioxide (22-30) mmol/L Anion Gap mmol/L BUN (7-17) mg/dL Creatinine (0.52-1.04) mg/dL Est GFR (CKD-EPI)AfAm (>60 ml/min/1.73 sqM) Est GFR (CKD-EPI)NonAf (>60 ml/min/1.73 sqM) Glucose (74-99) mg/dL Calcium (8.4-10.2) mg/dL Total Bilirubin (0.2-1.3) mg/dL AST (14-36) U/L ALT (4-34) U/L Alkaline Phosphatase (38-126) U/L Lactate Dehydrogenase (313-618) U/L Total Protein (6.3-8.2) g/dL Albumin (3.5-5.0) g/dL HCG, Quant mIU/mL Urine Color Light Red Urine Appearance Cloudy H (Clear) Urine pH 6.5 (5.0-8.0) Ur Specific Cartwright 1.018 (1.001-1.035) Urine Protein 1+ H (Negative) Urine Glucose (UA) Negative (Negative) Urine Ketones Negative (Negative) Urine Blood Large H (Negative) Urine Nitrite Negative (Negative) Urine Bilirubin Negative (Negative) Urine Urobilinogen <2.0 (<2.0) mg/dL Ur Leukocyte Esterase Small H (Negative) Urine RBC >182 H (0-5) /hpf Urine WBC 44 H (0-5) /hpf Ur Squamous Epith Cells 4 (0-4) /hpf Urine Bacteria Rare H (None) /hpf Urine Mucus Occasional H (None) /hpf Urine HCG, Qual Not Detected (Not Detectd) 08/08/21 08/08/21 Range/Units 19:42 19:42 WBC (3.8-10.6) k/uL RBC (3.80-5.40) m/uL Hgb (11.4-16.0) gm/dL Hct (34.0-46.0) % MCV (80.0-100.0) fL MCH (25.0-35.0) pg MCHC (31.0-37.0) g/dL RDW (11.5-15.5) % Plt Count (150-450) k/uL MPV Neutrophils % % Lymphocytes % % Monocytes % % Eosinophils % % Basophils % % Neutrophils # (1.3-7.7) k/uL Lymphocytes # (1.0-4.8) k/uL Monocytes # (0-1.0) k/uL Eosinophils # (0-0.7) k/uL Basophils # (0-0.2) k/uL PT 10.3 (9.0-12.0) sec INR 0.9 (<1.2) Sodium 137 (137-145) mmol/L Potassium 4.2 (3.5-5.1) mmol/L Chloride 104 (98-107) mmol/L Carbon Dioxide 25 (22-30) mmol/L Anion Gap 8 mmol/L BUN 10 (7-17) mg/dL Creatinine 0.74 (0.52-1.04) mg/dL Est GFR (CKD-EPI)AfAm >90 (>60 ml/min/1.73 sqM) Est GFR (CKD-EPI)NonAf >90 (>60 ml/min/1.73 sqM) Glucose 100 H (74-99) mg/dL Calcium 9.0 (8.4-10.2) mg/dL Total Bilirubin 0.3 (0.2-1.3) mg/dL AST 32 (14-36) U/L ALT 33 (4-34) U/L Alkaline Phosphatase 119 (38-126) U/L Lactate Dehydrogenase 541 (313-618) U/L Total Protein 7.3 (6.3-8.2) g/dL Albumin 4.2 (3.5-5.0) g/dL HCG, Quant <2.4 mIU/mL Urine Color Urine Appearance (Clear) Urine pH (5.0-8.0) Ur Specific Cartwright (1.001-1.035) Urine Protein (Negative) Urine Glucose (UA) (Negative) Urine Ketones (Negative) Urine Blood (Negative) Urine Nitrite (Negative) Urine Bilirubin (Negative) Urine Urobilinogen (<2.0) mg/dL Ur Leukocyte Esterase (Negative) Urine RBC (0-5) /hpf Urine WBC (0-5) /hpf Ur Squamous Epith Cells (0-4) /hpf Urine Bacteria (None) /hpf Urine Mucus (None) /hpf Urine HCG, Qual (Not Detectd) Disposition Clinical Impression: UTI (urinary tract infection) Disposition: HOME SELF-CARE Condition: Good Instructions (If sedation given, give patient instructions): Urinary Tract Infection in Women (ED) Additional Instructions: Increase your fluid intake and take the antibiotics as prescribed. Follow-up with your primary care doctor this week. Return to the emergency room with any new or concerning symptoms. Prescriptions: Sulfamethox-Tmp 800-160Mg [Bactrim Ds] 1 each PO Q12HR 3 Days #6 tab Is patient prescribed a controlled substance at d/c from ED?: No Referrals: Bentley Mckenzie DO [Primary Care Provider] - 1-2 days Time of Disposition: 21:19
[2021-08-08 19:29] LABS: Appearance,Urine Cloudy (Clear); Bacteria,Urine Rare /hpf; Bilirubin,Urine Negative (Negative); Blood,Urine Large (Negative); Color,Urine Light Red; Glucose,Urine (UA) Negative (Negative); Ketones,Urine Negative (Negative); Leukocyte Esterase,Urine Small (Negative); Mucus,Urine Occasional /hpf; Nitrite,Urine Negative (Negative); PH, Urine 6.5 (5.0-8.0); Protein,Urine 1+ (Negative); RBC,Urine >182 /hpf (0-5); Specific Gravity,Urine 1.018 (1.001-1.035); Squamous Epithelial Cell,Urine 4 /hpf (0-4); Urobilinogen,Urine <2.0 mg/dL (<2.0); WBC,Urine 44 /hpf (0-5)
[2021-08-08 20:12] LABS: Basophils # (A) 0.1 k/uL (0-0.2); Basophils % (A) 1 %; Eosinophils # (A) 0.2 k/uL (0-0.7); Eosinophils % (A) 2 %; HCT 40.7 % (34.0-46.0); HGB 13.5 gm/dL (11.4-16.0); Lymphocytes # (A) 3.8 k/uL (1.0-4.8); Lymphocytes % (A) 35 %; MCH 31.4 pg (25.0-35.0); MCHC 33.3 g/dL (31.0-37.0); MCV 94.5 fL (80.0-100.0); Mean Platelet Volume 9.1; Monocytes # (A) 0.5 k/uL (0-1.0); Monocytes % (A) 5 %; Neutrophils # (A) 6.2 k/uL (1.3-7.7); Neutrophils % (A) 57 %; Platelet Count 282 k/uL (150-450); RBC 4.31 m/uL (3.80-5.40); RDW 12.7 % (11.5-15.5); WBC 10.9 k/uL (3.8-10.6)
[2021-08-08 20:17] LABS: INR 0.9 (<1.2); Prothrombin Time 10.3 sec (9.0-12.0)
[2021-08-08 20:42] LABS: ALT 33 U/L (4-34); AST 32 U/L (14-36); African American GFR (CKD) >90 (>60 ml/min/1.73 sqM); Albumin 4.2 g/dL (3.5-5.0); Alkaline Phosphatase 119 U/L (38-126); Anion Gap 8 mmol/L; Blood Urea Nitrogen 10 mg/dL (7-17); Carbon Dioxide 25 mmol/L (22-30); Chloride 104 mmol/L (98-107); Glucose 100 mg/dL (74-99); LDH 541 U/L (313-618); Non-African American GFR(CKD) >90 (>60 ml/min/1.73 sqM); Potassium 4.2 mmol/L (3.5-5.1); Sodium 137 mmol/L (137-145); Total Bilirubin 0.3 mg/dL (0.2-1.3); Total Protein 7.3 g/dL (6.3-8.2)
--- NOTE | 2021-08-08 20:54 | US ---
EXAMINATION TYPE: Transabdominal DATE OF EXAM: 08/08/2021 8:27 PM COMPARISON: NONE CLINICAL HISTORY: vaginal bleeding r/o ectopic. Vaginal bleeding, rule out ectopic and torsi on. LMP 2 years ago. . LMP 2 years ago per patient, per patient no pelvic conditions. EXAM PERFORMED: Transvaginal (TV) and Transabdominal (TA). *Include rule out torsion per Riske CLINICAL ENGINEER. EXAM MEASUREMENTS: GESTATIONAL AGE / DATING Physician Established: Not yet established. Dates by LMP: Unknown. Dates by First Scan: This is first scan. Dates by Current Scan for: No IUP seen at this time. MATERNAL ANATOMY Uterus: 7.5 x 5.1 x 4.0 cm. Endometrium measured at 0.83 cm. Subcentimeter anechoic area seen cervix. Right Ovary: 3.2 x 2.2 x 2.4 cm. Subcentimeter anechoic areas seen. Left Ovary: 3.5 x 1.8 x 1.8 cm. Slightly limited evaluation. Positioned posterior to the uterus. Anec hoic area seen: 1.7 x 1.4 x 0.7 cm. Post CDS / Adnexa: Minimal fluid seen in CDS. Presence of free fluid: Minimal in CDS. Presence of corpus luteal cyst: not seen. GESTATION / SURVEY IUP: No IUP seen at this time Date of LMP: 2 years ago. Beta HcG (if available): urine hCG not available at start of US, not detected. IMPRESSION: No IUP seen at this time correlate with Beta HcG.
[2021-08-08 20:56] LABS: HCG,Quantitative Serum <2.4 mIU/mL
[2021-08-08] MEDS ORDERED: SULFAMETHOX-TMP 800-160MG 1 EACH TAB PO STA (21:19)
== END 2021-08-08 21:33 | disposition home or self-care (01) ==
LOC: EC 16:46
DX: N39.0 Urinary tract infection, site not specified (principal); K21.9 Gastro-esophageal reflux disease without esophagitis; F17.200 Nicotine dependence, unspecified, uncomplicated
CPT/HCPCS: 36415; 76801; 76817; 80053; 81001; 81025; 83615; 84702; 85025; 85610; 87086; 93975; 99284

== ENCOUNTER 2023-04-08 08:16 | Inpatient (IN) | payer BC ==
[2023-04-08] MEDS ORDERED: miSOPROStoL 200 MCG TAB PO PRN (10:15)
[2023-04-08] MEDS ORDERED: TRANEXAMIC 1,000 MG/100ML-NACL 1,000 MG in EMPTY BAG 1 BAG IV PRN (10:15)
[2023-04-08] MEDS ORDERED: OXYTOCIN 10 UNIT/ML 1 ML VIAL IM PRN (10:15)
[2023-04-08] MEDS ORDERED: CARBOPROST TROMETHAMINE 250 MCG/ML 1 ML AMP IM PRN (10:15)
[2023-04-08] MEDS ORDERED: LIDOCAINE 0.5% (PF) 5 MG/ML (50 ML SDV) SQ PRN (10:15)
[2023-04-08] MEDS ORDERED: LACTATED RINGERS 1,000 ML IV SCH (10:15)
[2023-04-08] MEDS ORDERED: TERBUTALINE 1 MG/ML VIAL SQ PRN (10:15)
[2023-04-08] MEDS ORDERED: METHYLERGONOVINE 0.2 MG/ML 1 ML AMP IM PRN (10:15)
--- NOTE | 2023-04-08 10:33 | P.HPOB ---
History of Present Illness H&P Date: 04/08/23 Chief Complaint: labor 27-year-old presents at 38 weeks and 5 days complaining of contractions every 4-5 minutes. heart tones 135 with moderate variability and reactive. Her cervix changed from 5 cm to 6 and a meters dilated, 70% effaced, and -2 station. Review of Systems All systems: negative Constitutional: Denies chills, Denies fever Eyes: denies blurred vision, denies pain Ears, nose, mouth and throat: Denies headache, Denies sore throat Cardiovascular: Denies chest pain, Denies shortness of breath Respiratory: Denies cough Gastrointestinal: Denies abdominal pain, Denies diarrhea, Denies nausea, Denies vomiting Genitourinary: Denies dysuria, Denies hematuria Musculoskeletal: Denies myalgias Integumentary: Denies pruritus, Denies rash Neurological: Denies numbness, Denies weakness Psychiatric: Denies anxiety, Denies depression Endocrine: Denies fatigue, Denies weight change Past Medical History Past Medical History: GERD/Reflux Additional Past Medical History / Comment(s): Obstetric history: First was a spontaneous . Second was a normal vaginal delivery. This is her third she's been followed for a circumvallate placenta. Blood type is B+, rubella immune, Pap is B-, RPR nonreactive, HIV nonreactive. History of Any Multi-Drug Resistant Organisms: None Reported Past Surgical History: Tonsillectomy Additional Past Surgical History / Comment(s): wisdom teeth Past Anesthesia/Blood Transfusion Reactions: No Reported Reaction Smoking Status: Never smoker - Past Family History Father History Unknown: Yes Family Medical History: Hypertension Medications and Allergies Home Medications Medication Instructions Recorded Confirmed Type Citalopram Hydrobromide [CeleXA] 20 mg PO HS 11/24/19 08/08/21 History Doxylamine Succinate [Unisom] 25 mg PO HS 11/24/19 08/08/21 History Vit No.180/Iron/Folic 1 tab PO HS 11/24/19 08/08/21 History [ Plus Tablet] Cholecalciferol [Vitamin D3 (25 50 mcg PO HS 08/08/21 08/08/21 History Mcg = 1000 Iu)] Omeprazole [PriLOSEC] 40 mg PO HS 08/08/21 08/08/21 History Sulfamethox-Tmp 800-160Mg [Bactrim 1 each PO Q12HR 3 Days #6 tab 08/08/21 Rx Ds] Allergies Allergy/AdvReac Type Severity Reaction Status Date / Time ibuprofen [From Motrin] Allergy Anaphylaxis Verified 04/01/23 12:04 Penicillins Allergy Nausea & Verified 04/01/23 12:04 Vomiting Exam Osteopathic Statement: *. No significant issues noted on an osteopathic structural exam other than those noted in the History and Physical/Consult. Intake and Output 04/07/23 04/08/23 04/08/23 22:59 06:59 14:59 Other: Weight 89.811 kg Heart: Regular rate and rhythm Lungs: Clear to auscultation bilaterally Abdomen: Soft, nontender Extremities: Negative Homans sign Assessment and Plan (1) Normal labor Current Visit: Yes Status: Acute Code(s): O80 - ENCOUNTER FOR FULL-TERM UNCOMPLICATED DELIVERY; Z37.9 - OUTCOME OF DELIVERY, UNSPECIFIED SNOMED Code(s): 57980930 Plan: 1. admit to [facility] 2. expectant management 3. anticipate normal vaginal delivery
[2023-04-08 10:35] LABS: Basophils % (A) 0 %; Eosinophils # (A) 0.1 k/uL (0-0.7); Eosinophils % (A) 1 %; HCT 35.2 % (34.0-46.0); HGB 11.7 gm/dL (11.4-16.0); Lymphocytes # (A) 1.9 k/uL (1.0-4.8); Lymphocytes % (A) 19 %; MCH 30.8 pg (25.0-35.0); MCHC 33.3 g/dL (31.0-37.0); MCV 92.4 fL (80.0-100.0); Mean Platelet Volume 8.4; Monocytes # (A) 0.5 k/uL (0-1.0); Monocytes % (A) 5 %; Neutrophils # (A) 7.5 k/uL (1.3-7.7); Neutrophils % (A) 74 %; Platelet Count 186 k/uL (150-450); RBC 3.81 m/uL (3.80-5.40); RDW 13.4 % (11.5-15.5); WBC 10.2 k/uL (3.8-10.6)
[2023-04-08] MEDS ORDERED: BENZOCAINE/MENTHOL SPRAY 1 GM/SPRAY AEROSOL TOPICAL PRN (12:59)
[2023-04-08] MEDS ORDERED: IBUPROFEN 600 MG TAB PO PRN (12:59)
[2023-04-08] MEDS ORDERED: SIMETHICONE 80 MG CHEWABLE PO PRN (12:59)
[2023-04-08] MEDS ORDERED: diphenhydrAMINE 25 MG CAP PO PRN (12:59)
[2023-04-08] MEDS ORDERED: LANOLIN CREAM 5 GM TUBE TOPICAL PRN (12:59)
[2023-04-08] MEDS ORDERED: diphenhydrAMINE 50 MG CAP PO PRN (12:59)
[2023-04-08] MEDS ORDERED: ZOLPIDEM 5 MG TAB PO PRN (12:59)
[2023-04-08] MEDS ORDERED: HYDROCORTISONE 2.5% RECTAL CREAM 30 GM TUBE RECTAL PRN (12:59)
[2023-04-08] MEDS ORDERED: diphenhydrAMINE 50 MG/ML 1 ML VIAL IVP PRN ×2 (12:59)
[2023-04-08] MEDS ORDERED: OXYTOCIN 30 UNITS/500 ML NS 30 UNIT in SALINE 1 500ML.BAG IV SCH (13:00)
--- NOTE | 2023-04-08 13:01 | P.MSEPDOC ---
Presenting Problems - Arrival Data Date of Arrival on Unit: 04/08/23 Time of Arrival on Unit: 08:30 Mode of Transport: Ambulatory - Complaint OB-Reason for Admission/Chief Complaint: Possible Onset of Labor Comment: Contrx every 4-7 min Medical History - Information : 2 Para: 1 Term: 1 : 0 Abortions: Spontaneous or Elective: 0 Number of Living Children: 1 - Gestational Age Gestational Age by YOSI (wks/days): 38 Weeks and 5 Days Review of Systems - Review of Systems Constitutional: No problems Breast: No problems ENT: No problems Cardiovascular: No problems Respiratory: No problems Gastrointestinal: No problems Genitourinary: No problems Musculoskeletal: No problems Neurological: No problems Skin: No problems Vital Signs - Temperature Temperature: 98.1 F Temperature Source: Temporal Artery Scan - Pulse Right Brachial Pulse Rate: 94 Pulse Assessment Method: Automatic Cuff - Respirations Respiratory Rate: 16 Oxygen Delivery Method: Room Air - Blood Pressure Right Arm Blood Pressure: 118/72 Blood Pressure Mean: 87 Blood Pressure Source: Automatic Cuff Medical Screen Scoring - Cervical Exam Dilation (cm): 6 Effacement (%): 70 Station: -2 Membranes: Intact - Uterine Contractions Frequency From (mins): 4 Frequency To (mins): 7 Duration From (seconds): 50 Duration To (seconds): 70 Intensity: Moderate Resting: Soft to palpation - Assessment - Baby A Baseline FHR: 145 Heart Rate - NICHD Category: Category I (Normal) NST: Reactive Physician Notification - Physician Notified Physician Notified Date: 04/08/23 Physician Notified Time: 09:40 Physician: Dr Chaudhary New Order Received: Yes - Notification Comment Comment: Dr Chaudhary present and ordered to admit patient Maternal Triage Index - Maternal Triage Index Presenting for scheduled procedure w/no complaint: No - Stat/Priority 1 Stat Priority 1: No - Urgent/Priority 2 Urgent Priority 2: No - Prompt/Priority 3 Prompt Priority 3: No - Non-Urgent/Priority 4 Non-Urgent Priority 4: Yes Criteria Met for Priority 4: Dr Chaudhary present Disposition - Disposition OB Disposition: Admit I agree with the RN Medical Screening Exam: Yes Case reviewed; plan agreed upon as documented in EMR&OBIX.: Yes Diagnosis: ENCOUNTER FOR FULL-TERM UNCOMPLICATED DELIVERY
[2023-04-08] MEDS: ACETAMINOPHEN TAB 325 MG TAB PO PRN (18:51)
[2023-04-08] MEDS: SENNOSIDES-DOCUSATE SODIUM 1 EACH TAB PO SCH (21:08)
[2023-04-08] MEDS ORDERED: PANTOPRAZOLE 40 MG TABLET PO STA (22:05)
[2023-04-08 23:26] VITALS: BP 124/87
[2023-04-09] MEDS: ACETAMINOPHEN TAB 325 MG TAB PO PRN (03:06)
--- NOTE | 2023-04-09 07:33 | P.PROBDLV ---
Vaginal Delivery Note - . Vaginal Delivery Note: 27-year-old presents at 38 weeks and 5 days complaining of contractions every 4-5 minutes. heart tones 135 with moderate variability and reactive. Her cervix changed from 5 cm to 6 and a meters dilated, 70% effaced, and -2 station. Amniotomy performed and clear fluid noted at 11:23 AM. Patient progressed to complete, pushed and delivered a viable male over intact perineum at 12:44 PM. Head delivered OA, anterior shoulder delivered gentle downward guidance for by posterior shoulder and rest of body. Nose and mouth bulb suctioned, cord clamped and cut, placed mother's abdomen. Apgars 7, 8, weight 7 pounds 2.3 ounces. Placenta delivered spontaneous, intact with three-vessel cord at 12:47 PM. Vagina, cervix, perineum inspected. Second- degree midline laceration was repaired with 3-0 Vicryl. Estimated blood loss 150 mL. Mother and baby in stable condition.
--- NOTE | 2023-04-09 07:34 | P.DS ---
Providers Date of admission: 04/08/23 09:41 Expected date of discharge: 04/09/23 Attending physician: Lotus Chaudhary Primary care physician: Stated None - Discharge Diagnosis(es) (1) Normal labor Current Visit: Yes Status: Resolved (2) Normal vaginal delivery Current Visit: Yes Status: Acute Hospital Course: Patient presented in active labor. She underwent a normal vaginal delivery. course was uneventful. She denies nausea, vomiting, chest pain, shortness of breath or calf pain. Patient will be discharged home day #1 in stable condition to follow-up with me in 6 weeks. Plan - Discharge Summary Discharge Rx Participant: No New Discharge Prescriptions: No Action Citalopram Hydrobromide [CeleXA] 20 mg PO HS Vit No.180/Iron/Folic [ Plus Tablet] 1 tab PO HS Doxylamine Succinate [Unisom] 25 mg PO HS Cholecalciferol [Vitamin D3 (25 Mcg = 1000 Iu)] 50 mcg PO HS Omeprazole [PriLOSEC] 40 mg PO HS Sulfamethox-Tmp 800-160Mg [Bactrim Ds] 1 each PO Q12HR 3 Days #6 tab Discharge Medication List Citalopram Hydrobromide [CeleXA] 20 mg PO HS 11/24/19 [History] Doxylamine Succinate [Unisom] 25 mg PO HS 11/24/19 [History] Vit No.180/Iron/Folic [ Plus Tablet] 1 tab PO HS 11/24/19 [History] Cholecalciferol [Vitamin D3 (25 Mcg = 1000 Iu)] 50 mcg PO HS 08/08/21 [History] Omeprazole [PriLOSEC] 40 mg PO HS 08/08/21 [History] Sulfamethox-Tmp 800-160Mg [Bactrim Ds] 1 each PO Q12HR 3 Days #6 tab 08/08/21 [Rx] Follow up Appointment(s)/Referral(s): Lotus Chaudhary DO [Doctor of Osteopathic Medicine] - 6 Weeks Discharge Disposition: HOME SELF-CARE
[2023-04-09 08:08] LABS: Basophils % (A) 0 %; Eosinophils % (A) 0 %; HCT 32.2 % (34.0-46.0); HGB 10.5 gm/dL (11.4-16.0); Hypochromasia Slight; Lymphocytes # (A) 1.8 k/uL (1.0-4.8); Lymphocytes % (A) 17 %; MCH 30.6 pg (25.0-35.0); MCHC 32.6 g/dL (31.0-37.0); MCV 94.1 fL (80.0-100.0); Mean Platelet Volume 7.8; Monocytes # (A) 0.5 k/uL (0-1.0); Monocytes % (A) 4 %; Neutrophils # (A) 8.4 k/uL (1.3-7.7); Neutrophils % (A) 77 %; Platelet Count 181 k/uL (150-450); RBC 3.42 m/uL (3.80-5.40); RDW 13.5 % (11.5-15.5); WBC 10.9 k/uL (3.8-10.6)
[2023-04-09 08:18] VITALS: PULSE 123; RESP 40; TEMP 98.2
[2023-04-09] MEDS: SENNOSIDES-DOCUSATE SODIUM 1 EACH TAB PO SCH (08:28)
== END 2023-04-09 15:45 | disposition home or self-care (01) | DRG 807 ==
LOC: FBPOP 08:16 → 4FBP 09:41
PROVIDERS: ADMIT Obstetrics & Gynecology; ATTEND Obstetrics & Gynecology
PROC: 10E0XZZ Delivery of Products of Conception, External Approach (ICD-10-PCS; principal; 2023-04-08)
PROC: 0KQM0ZZ Repair Perineum Muscle, Open Approach (ICD-10-PCS; 2023-04-08)
PROC: 10907ZC Drainage of Amniotic Fluid, Therapeutic from Products of Conception, Via Natural or Artificial Opening (ICD-10-PCS; 2023-04-08)
DX: O70.1 Second degree perineal laceration during delivery (principal); Z37.0 Single live birth; O99.62 Diseases of the digestive system complicating childbirth; Z3A.38 38 weeks gestation of pregnancy; K21.9 Gastro-esophageal reflux disease without esophagitis; Z88.0 Allergy status to penicillin; Z88.6 Allergy status to analgesic agent
CPT/HCPCS: 59025; 85025; 86850; 86900; 86901; 99213